=== PATIENT | female | born 1995 | race Caucasian/White ===

== ENCOUNTER → 2022-03-12 | Outpatient (CLI) | payer OTHER | LOC: M WHC 12:43 | PROVIDERS: ATTEND Obstetrics & Gynecology | DX: Z36.89 Encounter for other specified antenatal screening (principal); Z3A.33 33 weeks gestation of pregnancy ==

== ENCOUNTER 2022-04-05 05:25 | Inpatient (IN) | payer OTHER ==
[~2022-04-05] VITALS: Ht 154.9 cm; Wt 71.9 kg
[~2022-04-05 05:25] MED LIST: ASPI81TA26 PO; FOLI1TAB11 PO; IRON65TA2 PO; PRENTAB53 PO
[2022-04-05] MEDS ORDERED: TUMS500C PO (05:58)
[2022-04-05] MEDS ORDERED: HOME MED LIST COMPLETE! XX SCH (06:00)
[2022-04-05 06:19] LABS: HEMATOCRIT 38.4 % (36.0-47.0); HEMOGLOBIN 13.4 g/dl (12.0-15.5); MEAN CORPUSCULAR HEMOGLOBIN 31.2 pg (27.0-33.0); MEAN CORPUSCULAR HGB CONC 34.9 g/dl (32.0-36.5); MEAN CORPUSCULAR VOLUME 89.5 fl (80.0-96.0); PLATELET COUNT, AUTOMATED 238 10^3/uL (150-450); RED BLOOD COUNT 4.29 10^6/uL (4.00-5.40); WHITE BLOOD COUNT 6.5 10^3/uL (4.0-10.0)
[2022-04-05 06:24] VITALS: BP 116/66
[2022-04-05] MEDS ORDERED: ceFAZolin SOD 2 GM in IV 1 EA IV ONE (06:25)
[2022-04-05] MEDS ORDERED: BICITRA 30ML SOLN UDC PO ONE (06:25)
[2022-04-05] MEDS ORDERED: BUPIVACAINE HCL 0.25% 10ML VIAL XX ONE (06:25)
[2022-04-05] MEDS ORDERED: LR 1,000 ML IV SCH (06:25)
[2022-04-05] MEDS ORDERED: LACTATED RINGER'S 1000 ML IV ONE (06:25)
[2022-04-05] MEDS ORDERED: OXYTOCIN INJ 10 UNITS/ML VIAL (J2590) As Ordered ONE ×2 (07:31→09:03)
[2022-04-05] MEDS ORDERED: MORPHINE PRES-FREE INJ 10 MG/10 ML VIAL As Ordered ONE (07:32)
[2022-04-05 08:41] LABS: CORD GAS ABE A -2.5; CORD GAS HCO3 A 25.5 MEQ/L; CORD GAS O2 SAT A 21.1 %; CORD GAS PCO2 A 56.7 mmHg; CORD GAS PH A 7.27 UNITS; CORD GAS PO2 A 11.8 mmHg; CORD GAS SBC A 20.5 MEQ/L; CORD GAS TCO2 A 27.2 MEQ/L
[2022-04-05] MEDS ORDERED: ONDANSETRON 4MG 2ML VIAL As Ordered ONE (08:42)
[2022-04-05] MEDS ORDERED: PHENYLephrine 500MCG 5ML (100MCG/ML) SYRINGE As Ordered ONE (08:42)
[2022-04-05] MEDS ORDERED: KETOROLAC 60MG 2ML VIAL As Ordered ONE (08:42)
[2022-04-05 08:44] LABS: CORD GAS ABE V -3.6; CORD GAS HCO3 V 22.4 MEQ/L; CORD GAS O2 SAT V 74.2 %; CORD GAS PCO2 V 43.7 mmHg; CORD GAS PH V 7.327 UNITS; CORD GAS PO2 V 29.9 mmHg; CORD GAS SBC V 20.9 MEQ/L; CORD GAS TCO2 V 23.7 MEQ/L
[2022-04-05 08:46] LABS: CORD GAS ABE V -3.6; CORD GAS HCO3 V 22.7 MEQ/L; CORD GAS O2 SAT V 73.5 %; CORD GAS PCO2 V 45.6 mmHg; CORD GAS PH V 7.315 UNITS; CORD GAS PO2 V 29.6 mmHg; CORD GAS SBC V 20.9 MEQ/L; CORD GAS TCO2 V 24.1 MEQ/L
[2022-04-05 08:47] LABS: CORD GAS ABE A -4.8; CORD GAS HCO3 A 23.5 MEQ/L; CORD GAS O2 SAT A 60.6 %; CORD GAS PCO2 A 56.3 mmHg; CORD GAS PH A 7.239 UNITS; CORD GAS PO2 A 26.6 mmHg; CORD GAS SBC A 19.7 MEQ/L; CORD GAS TCO2 A 25.3 MEQ/L
[2022-04-05] MEDS ORDERED: METHYLERGONOVINE MALEATE 0.2 MG/ML VIAL (J2210) IM PRN (09:30)
[2022-04-05] MEDS ORDERED: oxyCODONE 5MG TAB PO PRN ×3 (09:30→10:45)
[2022-04-05] MEDS ORDERED: RHOGAM 300 MCG (1500 IU) INJ (J2790) IM SCH (09:30)
[2022-04-05] MEDS ORDERED: PROMETHAZINE 25 MG TAB PO PRN (09:30)
[2022-04-05] MEDS ORDERED: ONDANSETRON 4MG 2ML VIAL IV PRN ×2 (09:30→10:45)
[2022-04-05] MEDS ORDERED: SIMETHICONE 80MG CHEW TAB PO PRN (09:30)
[2022-04-05] MEDS ORDERED: OXYTOCIN DRIP 30 UNITS in IV 1 EA IV SCH (09:30)
[2022-04-05] MEDS ORDERED: OXYTOCIN 30 UNITS IN 0.9% NaCl 500ML IV BAG (J2590) As Ordered ONE (09:35)
[2022-04-05] MEDS ORDERED: **NOTE PATIENT COMMENT** MISC XX SCH (10:45)
[2022-04-05] MEDS: SLF 3 ML SYR IV SCH ×2 (10:45→18:45)
[2022-04-05] MEDS ORDERED: METOCLOPRAMIDE INJ 10MG/2ML VIAL IV PRN (10:45)
[2022-04-05] MEDS ORDERED: MEPERIDINE INJ 25 MG/ML VIAL (J2175) IV PRN (10:45)
[2022-04-05] MEDS ORDERED: fentaNYL 100 MCG/2 ML INJECTION IV PRN (10:45)
[2022-04-05] MEDS ORDERED: diphenhydrAMINE 50MG/ML VIAL IV PRN (10:45)
[2022-04-05] MEDS ORDERED: HYDROMORPHONE HCL 0.5 MG/ 0.5 ML SYRINGE (J1170 PER 1) IV PRN (10:45)
[2022-04-05] MEDS ORDERED: NALOXONE INJ 0.4MG/1ML VIAL (J2310 PER 1MG) IV PRN ×2 (10:45)
[2022-04-05 11:40] VITALS: BP 104/56
[2022-04-05] MEDS: LR 1,000 ML IV SCH (11:51)
[2022-04-05 12:15] VITALS: BP 102/58
[2022-04-05] MEDS: ACETAMINOPHEN 500 MG TAB PO SCH ×2 (12:19→18:19)
[2022-04-05 13:30] VITALS: BP 90/52
[2022-04-05] MEDS: KETOROLAC 30 MG/ML 1ML VIAL IV SCH ×2 (15:00→21:20)
[2022-04-05] MEDS ORDERED: LR 1,000 ML IV ONE (15:10)
[2022-04-05 18:15] VITALS: BP 96/52
[2022-04-05] MEDS: DOCUSATE SODIUM 100MG CAPSULE PO SCH (21:00)
[2022-04-05 22:00] VITALS: BP 92/50
[2022-04-06] MEDS: LR 1,000 ML IV SCH (00:26)
[2022-04-06] MEDS ORDERED: LR 1,000 ML IV ONE (01:10)
[2022-04-06 02:00] VITALS: BP 97/58
[2022-04-06] MEDS: SLF 3 ML SYR IV SCH (02:45)
[2022-04-06] MEDS: KETOROLAC 30 MG/ML 1ML VIAL IV SCH (03:23)
[2022-04-06 06:00] VITALS: BP 91/54
[2022-04-06] MEDS: ACETAMINOPHEN 500 MG TAB PO SCH ×4 (06:05→18:56)
[2022-04-06 07:22] LABS: HEMATOCRIT 31.6 % (36.0-47.0); MEAN CORPUSCULAR HEMOGLOBIN 31.6 pg (27.0-33.0); MEAN CORPUSCULAR HGB CONC 34.5 g/dl (32.0-36.5); MEAN CORPUSCULAR VOLUME 91.6 fl (80.0-96.0); PLATELET COUNT, AUTOMATED 176 10^3/uL (150-450); RED BLOOD COUNT 3.45 10^6/uL (4.00-5.40); WHITE BLOOD COUNT 7.7 10^3/uL (4.0-10.0)
[2022-04-06 07:27] LABS: HEMOGLOBIN 10.9 g/dl (12.0-15.5)
[2022-04-06] MEDS ORDERED: PRENATAL VITAMINS CHEWABLE TABLET PO SCH (09:00)
[2022-04-06] MEDS: PRENATAL VITAMINS CHEWABLE TABLET PO SCH (09:53)
[2022-04-06] MEDS: FERROUS SULFATE 325MG TAB PO SCH (09:54)
[2022-04-06] MEDS: DOCUSATE SODIUM 100MG CAPSULE PO SCH ×2 (09:54→21:16)
[2022-04-06 10:00] VITALS: BP 109/59
[2022-04-06] MEDS: IBUPROFEN 800 MG TAB PO SCH ×2 (11:00→18:35)
[2022-04-06 14:00] VITALS: BP 108/56
[2022-04-06 18:00] VITALS: BP 123/75
[2022-04-06 22:00] VITALS: BP 105/57
[2022-04-07] MEDS: ACETAMINOPHEN 500 MG TAB PO SCH ×3 (00:28→11:59)
[2022-04-07 02:00] VITALS: BP 118/59
[2022-04-07] MEDS: IBUPROFEN 800 MG TAB PO SCH ×2 (03:04→11:25)
[2022-04-07 05:47] VITALS: BP 126/60
[2022-04-07] MEDS ORDERED: MEASLES,MUMPS,RUBELLA VACCINE INJ (MMR-II) (90707) SC.IMMUN ONE (09:00)
[2022-04-07] MEDS: DOCUSATE SODIUM 100MG CAPSULE PO SCH (09:32)
[2022-04-07] MEDS: PRENATAL VITAMINS CHEWABLE TABLET PO SCH (09:32)
[2022-04-07] MEDS: FERROUS SULFATE 325MG TAB PO SCH (09:32)
== END 2022-04-07 14:45 | disposition home or self-care (01) | DRG 773 ==
LOC: M LDI 05:25 → M OBS 12:45
PROVIDERS: ADMIT Obstetrics & Gynecology; ATTEND Obstetrics & Gynecology
PROC: 10D00Z1 Extraction of Products of Conception, Low, Open Approach (ICD-10-PCS; principal; 2022-04-05 07:30)
DX: O32.8XX1 Maternal care for other malpresentation of fetus, fetus 1 (principal); O32.8XX2 Maternal care for other malpresentation of fetus, fetus 2; O30.043 Twin pregnancy, dichorionic/diamniotic, third trimester; Z3A.37 37 weeks gestation of pregnancy; Z37.2 Twins, both liveborn; Z30.2 Encounter for sterilization; O99.334 Smoking (tobacco) complicating childbirth; F17.200 Nicotine dependence, unspecified, uncomplicated